=== PATIENT | female | born 1980 | race African-American/Black ===

== ENCOUNTER 2021-10-19 17:53 | Emergency (ER) | payer MEDICAID ==
[~2021-10-19] VITALS: Ht 160 cm; Wt 84.0 kg
[2021-10-19] MEDS ORDERED: ACETAMINOPHEN 500 MG TABLET PO ONE (20:15)
[2021-10-19 22:48] VITALS: BP 139/86
== END 2021-10-19 22:49 | disposition home or self-care (01) ==
LOC: EMS 18:00
DX: S83.91XA Sprain of unspecified site of right knee, initial encounter (principal); M25.551 Pain in right hip; J45.909 Unspecified asthma, uncomplicated; F12.90 Cannabis use, unspecified, uncomplicated; Z98.51 Tubal ligation status; V87.8XXA Person injured in other specified noncollision transport accidents involving motor vehicle (traffic), initial encounter; Y93.89 Activity, other specified; Y92.89 Other specified places as the place of occurrence of the external cause; Y99.8 Other external cause status
CPT/HCPCS: 73502; 99284